=== PATIENT | female | born 1970 | race African-American/Black ===

== ENCOUNTER 2017-05-16 22:22 | Emergency (ER) | payer SELFPAY ==
[2017-05-17 00:46] LABS: #Eosinphils 0.1 thou/uL (0.0-0.7); #Lymphocytes 1.6 thou/uL (1.20-3.40); #Monocytes 0.6 thou/uL (0.11-0.59); #Neutrophils 3.2 thou/uL (1.40-6.50); %Basophils 0.6 % (0.0-1.0); %Lymphocytes 28.7 % (21.0-51.0); %Monocytes 10.9 % (0.0-10.0); Hematocrit 46.4 % (36.0-47.0); Mean Platelet Volume 8.2 fL (7.4-10.4); Red Blood Cell (RBC) Count 5.61 mill/uL (4.20-5.40); White Blood Cell (WBC) Count 5.5 thou/uL (4.8-10.8)
[2017-05-17 01:04] LABS: ALT (SGPT) 179 U/L (8-55); AST (SGOT) 67 U/L (5-34); Alkaline Phosphatase 201 U/L (40-150); Anion Gap 17 mmol/L (10-20); BUN (Urea Nitrogen) 20 mg/dL (7.0-18.7); Bilirubin, Total 0.8 mg/dL (0.2-1.2); CK (CPK) 19 U/L (29-168); Calc. Creatinine Clearance 0 mL/min (70-130); Calcium 10.7 mg/dL (7.8-10.44); Carbon Dioxide 27 mmol/L (22-29); Chloride 102 mmol/L (98-107); Estimated GFR-MDRD 79; Globulin 4.4 g/dL (2.4-3.5); Lipase 13 U/L (8-78)
== END 2017-05-17 03:11 | disposition left against medical advice (07) ==
LOC: ERS 22:22
DX: Z53.21 Procedure and treatment not carried out due to patient leaving prior to being seen by health care provider (principal)
CPT/HCPCS: 36415; 80053; 82550; 83690; 85025

== ENCOUNTER 2017-06-29 09:22 | Day surgery (SDC) | payer OTHER ==
[2017-06-29] MEDS ORDERED: ADMIXTURE FEE IVPB SCH ×9 (10:15→10:30)
[2017-06-29] MEDS ORDERED: LEUCOVORIN CALCIUM IVPB SCH ×6 (10:15→10:30)
[2017-06-29] MEDS ORDERED: DEXTROSE IVPB SCH ×9 (10:15→10:30)
[2017-06-29] MEDS ORDERED: Leucovorin Calcium 50 MG, Admixture Fee 1 EACH in Dextrose 5% in Water 50 ML IVPB SCH ×3 (10:15)
[2017-06-29] MEDS ORDERED: FLUOROURACIL IVPB SCH ×3 (10:15)
[2017-06-29] MEDS ORDERED: WATER IVPB SCH ×9 (10:15→10:30)
[2017-06-29 11:55] VITALS: BP 157/85; TEMP 98.5
[2017-06-29] MEDS ORDERED: Ondansetron HCl/PF 4 MG/2 ML Vial SLOW IVP SCH (13:00)
[2017-07-02] MEDS ORDERED: Ondansetron HCl/PF 4 MG/2 ML Vial IVP SCH (09:45)
== END 2017-06-29 12:38 | disposition home or self-care (01) ==
LOC: ONC/OP 09:22
PROVIDERS: ATTEND Internal Medicine Medical Oncology
DX: Z51.11 Encounter for antineoplastic chemotherapy (principal); C18.5 Malignant neoplasm of splenic flexure; Z90.49 Acquired absence of other specified parts of digestive tract; Z90.710 Acquired absence of both cervix and uterus
CPT/HCPCS: 96367; 96375; 96413; J0640; J2405; J7070; J9190

== ENCOUNTER 2017-06-30 08:53 | Day surgery (SDC) | payer OTHER, SELFPAY ==
[2017-06-30] MEDS ORDERED: DEXTROSE IVPB SCH ×6 (09:15)
[2017-06-30] MEDS ORDERED: ADMIXTURE FEE IVPB SCH ×6 (09:15)
[2017-06-30] MEDS ORDERED: FLUOROURACIL IVPB SCH ×3 (09:15)
[2017-06-30] MEDS ORDERED: WATER IVPB SCH ×6 (09:15)
[2017-06-30] MEDS ORDERED: LEUCOVORIN CALCIUM IVPB SCH ×3 (09:15)
[2017-06-30] MEDS ORDERED: Sodium Chloride 0.9% 20 ML ONE (09:32)
[2017-06-30 10:05] VITALS: BP 172/82; TEMP 97.4
[2017-06-30] MEDS ORDERED: Ondansetron HCl/PF 4 MG/2 ML Vial IVP SCH (13:30)
[2017-07-01] MEDS ORDERED: Ondansetron HCl/PF 4 MG/2 ML Vial IVP SCH (09:00)
== END 2017-06-30 13:59 | disposition home or self-care (01) ==
LOC: ONC/OP 08:53
PROVIDERS: ATTEND Internal Medicine Medical Oncology
DX: Z51.11 Encounter for antineoplastic chemotherapy (principal); C18.5 Malignant neoplasm of splenic flexure; Z90.710 Acquired absence of both cervix and uterus; Z90.49 Acquired absence of other specified parts of digestive tract
CPT/HCPCS: 96367; 96375; 96413; A4216; J0640; J1642; J2405; J7070; J9190

== ENCOUNTER 2017-07-01 08:48 | Day surgery (SDC) | payer SELFPAY ==
[2017-07-01] MEDS ORDERED: WATER IVPB SCH ×6 (09:00)
[2017-07-01] MEDS ORDERED: DEXTROSE IVPB SCH ×6 (09:00)
[2017-07-01] MEDS ORDERED: LEUCOVORIN CALCIUM IVPB SCH ×3 (09:00)
[2017-07-01] MEDS ORDERED: FLUOROURACIL IVPB SCH ×3 (09:00)
[2017-07-01] MEDS ORDERED: ADMIXTURE FEE IVPB SCH ×6 (09:00)
[2017-07-01] MEDS ORDERED: Ondansetron HCl/PF 4 MG/2 ML Vial IVP SCH (09:00)
[2017-07-01 09:03] VITALS: BP 174/88; TEMP 99.3
== END 2017-07-01 11:13 | disposition home or self-care (01) ==
LOC: ONC/OP 08:48
PROVIDERS: ATTEND Internal Medicine Medical Oncology
DX: Z51.11 Encounter for antineoplastic chemotherapy (principal); C18.5 Malignant neoplasm of splenic flexure
CPT/HCPCS: 96367; 96413; J0640; J7070; J9190

== ENCOUNTER 2017-07-02 09:07 | Day surgery (SDC) | payer SELFPAY ==
[2017-07-02] MEDS ORDERED: Sodium Chloride 0.9% 20 ML ONE (09:17)
[2017-07-02] MEDS ORDERED: ADMIXTURE FEE IVPB SCH ×6 (09:30)
[2017-07-02] MEDS ORDERED: WATER IVPB SCH ×6 (09:30)
[2017-07-02] MEDS ORDERED: FLUOROURACIL IVPB SCH ×3 (09:30)
[2017-07-02] MEDS ORDERED: DEXTROSE IVPB SCH ×6 (09:30)
[2017-07-02] MEDS ORDERED: LEUCOVORIN CALCIUM IVPB SCH ×3 (09:30)
[2017-07-02 09:47] VITALS: BP 164/92; TEMP 98.5
[2017-07-02] MEDS ORDERED: Ondansetron HCl/PF 4 MG/2 ML Vial IVP PRN (10:40)
== END 2017-07-02 14:55 | disposition home or self-care (01) ==
LOC: ONC/OP 09:07
PROVIDERS: ATTEND Internal Medicine Medical Oncology
DX: Z51.11 Encounter for antineoplastic chemotherapy (principal); C18.5 Malignant neoplasm of splenic flexure; Z90.710 Acquired absence of both cervix and uterus
CPT/HCPCS: 96367; 96413; A4216; J0640; J7070; J9190

== ENCOUNTER 2017-07-03 08:52 | Day surgery (SDC) | payer SELFPAY ==
[2017-07-03] MEDS ORDERED: Sodium Chloride 0.9% 20 ML ONE (09:01)
[2017-07-03] MEDS ORDERED: Ondansetron 2MG/ML MDV 8 MG in Sodium Chloride 0.9% 50 ML IVP PRN (09:42)
[2017-07-03] MEDS ORDERED: WATER IVPB SCH ×6 (09:45→10:00)
[2017-07-03] MEDS ORDERED: FLUOROURACIL IVPB SCH ×2 (09:45)
[2017-07-03] MEDS ORDERED: DEXTROSE 5% IVPB SCH ×6 (09:45→10:00)
[2017-07-03] MEDS ORDERED: LEUCOVORIN CALCIUM IVPB SCH ×4 (09:45→10:00)
[2017-07-03] MEDS ORDERED: Ondansetron HCl/PF 4 MG/2 ML Vial IVP SCH (10:00)
[2017-07-03 10:05] VITALS: BP 152/86; TEMP 98.3
== END 2017-07-03 11:45 | disposition home or self-care (01) ==
LOC: ONC/OP 08:52
PROVIDERS: ATTEND Internal Medicine Medical Oncology
DX: Z51.11 Encounter for antineoplastic chemotherapy (principal); C18.5 Malignant neoplasm of splenic flexure
CPT/HCPCS: 96367; 96375; 96413; A4216; J0640; J2405; J7050; J7070; J9190

== ENCOUNTER 2017-08-03 13:59 | Day surgery (SDC) | payer OTHER, SELFPAY ==
[2017-08-03] MEDS ORDERED: Sodium Chloride 0.9% 20 ML ONE (14:12)
[2017-08-03] MEDS ORDERED: Ondansetron HCl/PF 4 MG/2 ML Vial IVP SCH (15:00)
[2017-08-03] MEDS ORDERED: DEXTROSE 5% IVPB SCH ×2 (15:15→15:30)
[2017-08-03] MEDS ORDERED: WATER IVPB SCH ×2 (15:15→15:30)
[2017-08-03] MEDS ORDERED: FLUOROURACIL IVPB SCH (15:15)
[2017-08-03] MEDS ORDERED: LEUCOVORIN CALCIUM IVPB SCH (15:30)
== END 2017-08-03 16:28 | disposition home or self-care (01) ==
LOC: ONC/OP 13:59
PROVIDERS: ATTEND Internal Medicine Medical Oncology
DX: Z51.11 Encounter for antineoplastic chemotherapy (principal); C18.5 Malignant neoplasm of splenic flexure; R03.0 Elevated blood-pressure reading, without diagnosis of hypertension; Z79.899 Other long term (current) drug therapy; Z90.710 Acquired absence of both cervix and uterus; Z98.890 Other specified postprocedural states
CPT/HCPCS: 96367; 96375; 96413; A4216; J0640; J1642; J2405; J7070; J9190

== ENCOUNTER 2017-08-04 12:53 | Day surgery (SDC) | payer OTHER, SELFPAY ==
[2017-08-04] MEDS ORDERED: WATER IVPB SCH ×4 (13:15)
[2017-08-04] MEDS ORDERED: DEXTROSE 5% IVPB SCH ×4 (13:15)
[2017-08-04] MEDS ORDERED: LEUCOVORIN CALCIUM IVPB SCH ×2 (13:15)
[2017-08-04] MEDS ORDERED: Ondansetron 2MG/ML MDV 8 MG in Sodium Chloride 0.9% 50 ML IVPB SCH (13:15)
[2017-08-04] MEDS ORDERED: FLUOROURACIL IVPB SCH ×2 (13:15)
== END 2017-08-04 14:46 | disposition home or self-care (01) ==
LOC: ONC/OP 12:53
PROVIDERS: ATTEND Internal Medicine Medical Oncology
DX: Z51.11 Encounter for antineoplastic chemotherapy (principal); C18.5 Malignant neoplasm of splenic flexure
CPT/HCPCS: 96367; 96413; J0640; J2405; J7050; J7070; J9190

== ENCOUNTER 2017-08-05 12:59 | Day surgery (SDC) | payer OTHER, SELFPAY ==
[2017-08-05] MEDS ORDERED: Sodium Chloride 0.9% 20 ML ONE (13:02)
[2017-08-05] MEDS ORDERED: WATER IVPB SCH ×4 (13:15→13:30)
[2017-08-05] MEDS ORDERED: LEUCOVORIN CALCIUM IVPB SCH ×2 (13:15)
[2017-08-05] MEDS ORDERED: DEXTROSE 5% IVPB SCH ×4 (13:15→13:30)
[2017-08-05] MEDS ORDERED: Ondansetron HCl/PF 4 MG/2 ML Vial SLOW IVP SCH (13:30)
[2017-08-05] MEDS ORDERED: FLUOROURACIL IVPB SCH ×2 (13:30)
[2017-08-05 13:39] VITALS: BP 148/92; TEMP 98.5
== END 2017-08-05 17:35 | disposition home or self-care (01) ==
LOC: ONC/OP 12:59
PROVIDERS: ATTEND Internal Medicine Medical Oncology
DX: Z51.11 Encounter for antineoplastic chemotherapy (principal); C18.5 Malignant neoplasm of splenic flexure
CPT/HCPCS: 96367; 96375; 96413; A4216; J0640; J2405; J7070; J9190

== ENCOUNTER 2017-08-06 12:53 | Day surgery (SDC) | payer OTHER, SELFPAY ==
[2017-08-06] MEDS ORDERED: DEXTROSE 5% IVPB SCH ×4 (13:00→13:15)
[2017-08-06] MEDS ORDERED: LEUCOVORIN CALCIUM IVPB SCH ×2 (13:00)
[2017-08-06] MEDS ORDERED: WATER IVPB SCH ×4 (13:00→13:15)
[2017-08-06] MEDS ORDERED: Ondansetron 2MG/ML MDV 8 MG in Sodium Chloride 0.9% 50 ML IVPB SCH (13:15)
[2017-08-06] MEDS ORDERED: FLUOROURACIL IVPB SCH ×2 (13:15)
== END 2017-08-06 15:23 | disposition home or self-care (01) ==
LOC: ONC/OP 12:53
PROVIDERS: ATTEND Internal Medicine Medical Oncology
DX: Z51.11 Encounter for antineoplastic chemotherapy (principal); C18.5 Malignant neoplasm of splenic flexure
CPT/HCPCS: 96367; 96413; J0640; J2405; J7050; J7070; J9190

== ENCOUNTER 2017-08-07 12:33 | Day surgery (SDC) | payer OTHER, SELFPAY ==
[2017-08-07] MEDS ORDERED: FLUOROURACIL IVPB SCH ×2 (12:45)
[2017-08-07] MEDS ORDERED: Ondansetron HCl/PF 4 MG/2 ML Vial SLOW IVP SCH (12:45)
[2017-08-07] MEDS ORDERED: LEUCOVORIN CALCIUM IVPB SCH ×2 (12:45)
[2017-08-07] MEDS ORDERED: DEXTROSE 5% IVPB SCH ×4 (12:45)
[2017-08-07] MEDS ORDERED: WATER IVPB SCH ×4 (12:45)
[2017-08-07 13:19] VITALS: BP 155/85; TEMP 98.1
== END 2017-08-07 15:10 | disposition home or self-care (01) ==
LOC: ONC/OP 12:33
PROVIDERS: ATTEND Internal Medicine Medical Oncology
DX: Z51.11 Encounter for antineoplastic chemotherapy (principal); C18.5 Malignant neoplasm of splenic flexure; Z90.710 Acquired absence of both cervix and uterus
CPT/HCPCS: 96367; 96376; 96413; J0640; J2405; J7070; J9190

== ENCOUNTER 2017-08-31 13:19 | Day surgery (SDC) | payer OTHER, SELFPAY ==
[2017-08-31] MEDS ORDERED: Sodium Chloride 0.9% 20 ML ONE (13:57)
[2017-08-31] MEDS ORDERED: ADMIXTURE FEE IVPB SCH ×2 (14:15)
[2017-08-31] MEDS ORDERED: DEXTROSE IVPB SCH (14:15)
[2017-08-31] MEDS ORDERED: SODIUM CHLORIDE IVPB SCH (14:15)
[2017-08-31] MEDS ORDERED: ADMIXTURE FEE IVP SCH (14:15)
[2017-08-31] MEDS ORDERED: ONDANSETRON IVP SCH (14:15)
[2017-08-31] MEDS ORDERED: WATER IVPB SCH (14:15)
[2017-08-31] MEDS ORDERED: FLUOROURACIL IVPB SCH (14:15)
[2017-08-31] MEDS ORDERED: SODIUM CHLORIDE IVP SCH (14:15)
[2017-08-31] MEDS ORDERED: LEUCOVORIN CALCIUM IVPB SCH (14:15)
== END 2017-08-31 16:20 | disposition home or self-care (01) ==
LOC: ONC/OP 13:19
PROVIDERS: ATTEND Internal Medicine Medical Oncology
DX: Z51.11 Encounter for antineoplastic chemotherapy (principal); C18.5 Malignant neoplasm of splenic flexure; D50.9 Iron deficiency anemia, unspecified; R03.0 Elevated blood-pressure reading, without diagnosis of hypertension; Z79.899 Other long term (current) drug therapy; Z90.49 Acquired absence of other specified parts of digestive tract; Z90.710 Acquired absence of both cervix and uterus
CPT/HCPCS: 96367; 96413; A4216; J0640; J2405; J7050; J7070; J9190

== ENCOUNTER 2017-09-01 11:11 | Day surgery (SDC) | payer OTHER, SELFPAY ==
[2017-09-01] MEDS ORDERED: ADMIXTURE FEE IVPB SCH ×2 (11:30)
[2017-09-01] MEDS ORDERED: FLUOROURACIL IVPB SCH (11:30)
[2017-09-01] MEDS ORDERED: Ondansetron HCl/PF 4 MG/2 ML Vial IVP SCH (11:30)
[2017-09-01] MEDS ORDERED: LEUCOVORIN CALCIUM IVPB SCH (11:30)
[2017-09-01] MEDS ORDERED: SODIUM CHLORIDE IVPB SCH ×2 (11:30)
[2017-09-01] MEDS ORDERED: Sodium Chloride 0.9% 20 ML ONE (11:45)
== END 2017-09-01 15:36 | disposition home or self-care (01) ==
LOC: ONC/OP 11:11
PROVIDERS: ATTEND Internal Medicine Medical Oncology
DX: Z51.11 Encounter for antineoplastic chemotherapy (principal); C18.5 Malignant neoplasm of splenic flexure; Z90.710 Acquired absence of both cervix and uterus
CPT/HCPCS: 96367; 96413; A4216; J0640; J7050; J9190

== ENCOUNTER 2017-09-02 11:23 | Day surgery (SDC) | payer OTHER, SELFPAY ==
[2017-09-02] MEDS ORDERED: Sodium Chloride 0.9% 30 ML ONE (11:29)
[2017-09-02] MEDS ORDERED: Ondansetron HCl/PF 4 MG/2 ML Vial IVP SCH (14:15)
[2017-09-02] MEDS ORDERED: SODIUM CHLORIDE IVPB SCH ×2 (14:30)
[2017-09-02] MEDS ORDERED: ADMIXTURE FEE IVPB SCH ×2 (14:30)
[2017-09-02] MEDS ORDERED: LEUCOVORIN CALCIUM IVPB SCH (14:30)
[2017-09-02] MEDS ORDERED: FLUOROURACIL IVPB SCH (14:30)
[2017-09-02 15:21] VITALS: BP 93/77; TEMP 98
== END 2017-09-02 15:26 | disposition home or self-care (01) ==
LOC: ONC/OP 11:23
PROVIDERS: ATTEND Internal Medicine Medical Oncology
DX: Z51.11 Encounter for antineoplastic chemotherapy (principal); C18.5 Malignant neoplasm of splenic flexure
CPT/HCPCS: 96367; 96375; 96413; A4216; J0640; J7050; J9190

== ENCOUNTER 2017-09-03 11:46 | Day surgery (SDC) | payer OTHER, SELFPAY ==
[~2017-09-03 11:46] MED LIST: ADMIXTURE FEE IVPB SCH; FLUOROURACIL IVPB SCH; LEUCOVORIN CALCIUM IVPB SCH; Ondansetron HCl/PF 4 MG/2 ML Vial IVP SCH; SODIUM CHLORIDE IVPB SCH
[2017-09-03] MEDS ORDERED: ADMIXTURE FEE IVPB SCH ×2 (12:15→12:30)
[2017-09-03] MEDS ORDERED: Ondansetron HCl/PF 4 MG/2 ML Vial IVP SCH (12:15)
[2017-09-03] MEDS ORDERED: LEUCOVORIN CALCIUM IVPB SCH (12:15)
[2017-09-03] MEDS ORDERED: SODIUM CHLORIDE IVPB SCH ×2 (12:15→12:30)
[2017-09-03] MEDS ORDERED: FLUOROURACIL IVPB SCH (12:30)
[2017-09-03] MEDS ORDERED: Sodium Chloride 0.9% 20 ML ONE (13:15)
== END 2017-09-03 14:13 | disposition home or self-care (01) ==
LOC: ONC/OP 11:46
PROVIDERS: ATTEND Internal Medicine Medical Oncology
DX: Z51.11 Encounter for antineoplastic chemotherapy (principal); C18.9 Malignant neoplasm of colon, unspecified
CPT/HCPCS: 96367; 96375; 96413; A4216; J0640; J2405; J7050; J9190

== ENCOUNTER 2017-09-04 11:09 | Day surgery (SDC) | payer SELFPAY ==
[2017-09-04 11:26] VITALS: BP 128/85; TEMP 97.8
[2017-09-04] MEDS ORDERED: Ondansetron HCl/PF 4 MG/2 ML Vial IVP SCH (11:30)
[2017-09-04] MEDS ORDERED: FLUOROURACIL IVPB SCH (11:30)
[2017-09-04] MEDS ORDERED: ADMIXTURE FEE IVPB SCH ×2 (11:30)
[2017-09-04] MEDS ORDERED: LEUCOVORIN CALCIUM IVPB SCH (11:30)
[2017-09-04] MEDS ORDERED: SODIUM CHLORIDE IVPB SCH ×2 (11:30)
[2017-09-04] MEDS ORDERED: Sodium Chloride 0.9% 30 ML ONE (12:45)
== END 2017-09-04 13:24 | disposition home or self-care (01) ==
LOC: ONC/OP 11:09
PROVIDERS: ATTEND Internal Medicine Medical Oncology
DX: Z51.11 Encounter for antineoplastic chemotherapy (principal); C18.5 Malignant neoplasm of splenic flexure; Z90.710 Acquired absence of both cervix and uterus
CPT/HCPCS: 96367; 96375; 96413; A4216; J0640; J2405; J7050; J9190

== ENCOUNTER 2017-09-28 13:45 | Day surgery (SDC) | payer OTHER, SELFPAY ==
[2017-09-28] MEDS ORDERED: Sodium Chloride 0.9% 20 ML ONE (13:59)
[2017-09-28] MEDS ORDERED: LEUCOVORIN CALCIUM IVPB SCH (14:00)
[2017-09-28] MEDS ORDERED: SODIUM CHLORIDE 0.9% IVPB SCH ×2 (14:00)
[2017-09-28] MEDS ORDERED: Ondansetron HCl/PF 4 MG/2 ML Vial SLOW IVP SCH (14:00)
[2017-09-28] MEDS ORDERED: FLUOROURACIL IVPB SCH (14:00)
[2017-09-28 14:43] VITALS: BP 128/72
== END 2017-09-28 16:18 | disposition home or self-care (01) ==
LOC: ONC/OP 13:45
PROVIDERS: ATTEND Internal Medicine Medical Oncology
DX: Z51.11 Encounter for antineoplastic chemotherapy (principal); C18.5 Malignant neoplasm of splenic flexure; R03.0 Elevated blood-pressure reading, without diagnosis of hypertension; Z79.899 Other long term (current) drug therapy; Z90.710 Acquired absence of both cervix and uterus; Z98.890 Other specified postprocedural states
CPT/HCPCS: 96367; 96375; 96413; A4216; J0640; J2405; J7050; J9190

== ENCOUNTER 2017-09-29 13:13 | Day surgery (SDC) | payer OTHER, SELFPAY ==
[2017-09-29] MEDS ORDERED: Sodium Chloride 0.9% 30 ML ONE (13:20)
[2017-09-29 13:30] VITALS: BP 155/84
[2017-09-29] MEDS ORDERED: SODIUM CHLORIDE 0.9% IVPB SCH ×2 (13:30)
[2017-09-29] MEDS ORDERED: LEUCOVORIN CALCIUM IVPB SCH (13:30)
[2017-09-29] MEDS ORDERED: FLUOROURACIL IVPB SCH (13:30)
[2017-09-29] MEDS ORDERED: Ondansetron HCl/PF 4 MG/2 ML Vial SLOW IVP SCH (13:30)
== END 2017-09-29 17:07 | disposition home or self-care (01) ==
LOC: ONC/OP 13:13
PROVIDERS: ATTEND Internal Medicine Medical Oncology
DX: Z51.11 Encounter for antineoplastic chemotherapy (principal); C18.5 Malignant neoplasm of splenic flexure
CPT/HCPCS: 96367; 96375; 96413; A4216; J0640; J2405; J7050; J9190

== ENCOUNTER 2017-09-30 13:03 | Day surgery (SDC) | payer OTHER, SELFPAY ==
[2017-09-30] MEDS ORDERED: FLUOROURACIL IVPB SCH (13:15)
[2017-09-30] MEDS ORDERED: ADMIXTURE FEE IVPB SCH ×3 (13:15→13:30)
[2017-09-30] MEDS ORDERED: Ondansetron HCl/PF 4 MG/2 ML Vial IVP SCH (13:15)
[2017-09-30] MEDS ORDERED: LEUCOVORIN CALCIUM IVPB SCH ×2 (13:15→13:30)
[2017-09-30] MEDS ORDERED: SODIUM CHLORIDE IVPB SCH ×3 (13:15→13:30)
[2017-09-30 13:16] VITALS: BP 141/79; TEMP 97.7
[2017-09-30] MEDS ORDERED: Sodium Chloride 0.9% 20 ML ONE (13:41)
== END 2017-09-30 15:53 | disposition home or self-care (01) ==
LOC: ONC/OP 13:03
PROVIDERS: ATTEND Internal Medicine Medical Oncology
DX: Z51.11 Encounter for antineoplastic chemotherapy (principal); C18.5 Malignant neoplasm of splenic flexure
CPT/HCPCS: 96367; 96375; 96413; A4216; J0640; J2405; J7050; J9190

== ENCOUNTER 2017-10-01 12:42 | Day surgery (SDC) | payer OTHER, SELFPAY ==
[2017-10-01] MEDS ORDERED: FLUOROURACIL IVPB SCH ×4 (13:00)
[2017-10-01] MEDS ORDERED: SODIUM CHLORIDE 0.9% IVPB SCH ×5 (13:00)
[2017-10-01] MEDS ORDERED: Ondansetron HCl/PF 4 MG/2 ML Vial SLOW IVP SCH (13:00)
[2017-10-01] MEDS ORDERED: LEUCOVORIN CALCIUM IVPB SCH (13:00)
[2017-10-01 13:20] VITALS: BP 134/76; TEMP 98.3
== END 2017-10-01 16:51 | disposition home or self-care (01) ==
LOC: ONC/OP 12:42
PROVIDERS: ATTEND Internal Medicine Medical Oncology
DX: Z51.11 Encounter for antineoplastic chemotherapy (principal); C18.5 Malignant neoplasm of splenic flexure
CPT/HCPCS: 96367; 96375; 96413; J0640; J2405; J7050; J9190

== ENCOUNTER 2017-10-02 12:59 | Day surgery (SDC) | payer OTHER, SELFPAY ==
[2017-10-02] MEDS ORDERED: Sodium Chloride 0.9% 30 ML ONE (13:05)
[2017-10-02] MEDS ORDERED: FLUOROURACIL IVPB SCH (13:15)
[2017-10-02] MEDS ORDERED: SODIUM CHLORIDE 0.9% IVPB SCH ×2 (13:15)
[2017-10-02] MEDS ORDERED: LEUCOVORIN CALCIUM IVPB SCH (13:15)
[2017-10-02] MEDS ORDERED: Ondansetron HCl/PF 4 MG/2 ML Vial SLOW IVP SCH (13:30)
[2017-10-02 13:55] VITALS: BP 108/69; TEMP 98.5
== END 2017-10-02 14:30 | disposition home or self-care (01) ==
LOC: ONC/OP 12:59
PROVIDERS: ATTEND Internal Medicine Medical Oncology
DX: Z51.11 Encounter for antineoplastic chemotherapy (principal); C18.5 Malignant neoplasm of splenic flexure
CPT/HCPCS: 96367; 96376; 96413; A4216; J0640; J2405; J7050; J9190

== ENCOUNTER 2017-10-26 13:50 | Day surgery (SDC) | payer SELFPAY ==
[2017-10-26] MEDS ORDERED: Ondansetron HCl/PF 4 MG/2 ML Vial IVP SCH (14:30)
[2017-10-26] MEDS ORDERED: LEUCOVORIN CALCIUM IVPB SCH (14:45)
[2017-10-26] MEDS ORDERED: FLUOROURACIL IVPB SCH ×3 (14:45)
[2017-10-26] MEDS ORDERED: SODIUM CHLORIDE IVPB SCH ×4 (14:45)
[2017-10-26] MEDS ORDERED: ADMIXTURE FEE IVPB SCH ×4 (14:45)
[2017-10-26] MEDS ORDERED: Ondansetron 2MG/ML MDV 8 MG in Sodium Chloride 0.9% 50 ML IVP SCH (14:45)
== END 2017-10-26 16:33 | disposition home or self-care (01) ==
LOC: ONC/OP 13:50
PROVIDERS: ATTEND Internal Medicine Medical Oncology
DX: Z51.11 Encounter for antineoplastic chemotherapy (principal); C18.5 Malignant neoplasm of splenic flexure; D50.9 Iron deficiency anemia, unspecified; R03.0 Elevated blood-pressure reading, without diagnosis of hypertension; Z90.49 Acquired absence of other specified parts of digestive tract
CPT/HCPCS: 96367; 96413; J0640; J2405; J7050; J9190

== ENCOUNTER 2017-10-27 13:41 | Day surgery (SDC) | payer OTHER, SELFPAY ==
[2017-10-27] MEDS ORDERED: Ondansetron ODT 8 MG TAB PO SCH (14:00)
[2017-10-27 14:16] VITALS: BP 135/77
[2017-10-27] MEDS ORDERED: SODIUM CHLORIDE IVPB SCH ×2 (14:30)
[2017-10-27] MEDS ORDERED: LEUCOVORIN CALCIUM IVPB SCH (14:30)
[2017-10-27] MEDS ORDERED: ADMIXTURE FEE IVPB SCH ×2 (14:30)
[2017-10-27] MEDS ORDERED: FLUOROURACIL IVPB SCH (14:30)
== END 2017-10-27 14:47 | disposition home or self-care (01) ==
LOC: ONC/OP 13:41
PROVIDERS: ATTEND Internal Medicine Medical Oncology
DX: Z51.11 Encounter for antineoplastic chemotherapy (principal); C18.5 Malignant neoplasm of splenic flexure
CPT/HCPCS: 96367; 96413; J0640; J7050; J9190

== ENCOUNTER 2017-10-28 13:57 | Day surgery (SDC) | payer OTHER, SELFPAY ==
[2017-10-28] MEDS ORDERED: SODIUM CHLORIDE IVPB SCH ×2 (14:15)
[2017-10-28] MEDS ORDERED: FLUOROURACIL IVPB SCH (14:15)
[2017-10-28] MEDS ORDERED: Ondansetron ODT 8 MG TAB PO SCH (14:15)
[2017-10-28] MEDS ORDERED: ADMIXTURE FEE IVPB SCH ×2 (14:15)
[2017-10-28] MEDS ORDERED: LEUCOVORIN CALCIUM IVPB SCH (14:15)
[2017-10-28 14:19] VITALS: BP 149/85
== END 2017-10-28 15:29 | disposition home or self-care (01) ==
LOC: ONC/OP 13:57
PROVIDERS: ATTEND Internal Medicine Medical Oncology
DX: Z51.11 Encounter for antineoplastic chemotherapy (principal); C18.5 Malignant neoplasm of splenic flexure
CPT/HCPCS: 96367; 96413; J0640; J7050; J9190

== ENCOUNTER 2017-10-29 13:38 | Day surgery (SDC) | payer OTHER, SELFPAY ==
[2017-10-29] MEDS ORDERED: ADMIXTURE FEE IVPB SCH ×2 (14:15)
[2017-10-29] MEDS ORDERED: Ondansetron ODT 8 MG TAB PO SCH (14:15)
[2017-10-29] MEDS ORDERED: FLUOROURACIL IVPB SCH (14:15)
[2017-10-29] MEDS ORDERED: SODIUM CHLORIDE IVPB SCH ×2 (14:15)
[2017-10-29] MEDS ORDERED: LEUCOVORIN CALCIUM IVPB SCH (14:15)
== END 2017-10-29 16:18 | disposition home or self-care (01) ==
LOC: ONC/OP 13:38
PROVIDERS: ATTEND Internal Medicine Medical Oncology
DX: Z51.11 Encounter for antineoplastic chemotherapy (principal); C18.5 Malignant neoplasm of splenic flexure
CPT/HCPCS: 96367; 96413; J0640; J7050; J9190

== ENCOUNTER 2017-10-30 13:29 | Day surgery (SDC) | payer SELFPAY ==
[2017-10-30] MEDS ORDERED: LEUCOVORIN CALCIUM IVPB SCH (13:45)
[2017-10-30] MEDS ORDERED: SODIUM CHLORIDE 0.9% IVPB SCH ×3 (13:45→14:15)
[2017-10-30] MEDS ORDERED: FLUOROURACIL IVPB SCH ×2 (14:00→14:15)
[2017-10-30] MEDS ORDERED: Ondansetron ODT 8 MG TAB PO SCH (14:00)
[2017-10-30] MEDS ORDERED: Sodium Chloride 0.9% 20 ML ONE (14:07)
== END 2017-10-30 16:00 | disposition home or self-care (01) ==
LOC: ONC/OP 13:29
PROVIDERS: ATTEND Internal Medicine Medical Oncology
DX: Z51.11 Encounter for antineoplastic chemotherapy (principal); C18.5 Malignant neoplasm of splenic flexure
CPT/HCPCS: 96367; 96413; A4216; J0640; J7050; J9190

== ENCOUNTER 2017-11-23 13:52 | Day surgery (SDC) | payer OTHER, SELFPAY ==
[2017-11-23] MEDS ORDERED: Sodium Chloride 0.9% 30 ML ONE (14:15)
[2017-11-23] MEDS ORDERED: LEUCOVORIN CALCIUM IVPB SCH (14:15)
[2017-11-23] MEDS ORDERED: WATER IVPB SCH (14:15)
[2017-11-23] MEDS ORDERED: DEXTROSE 5% IVPB SCH (14:15)
[2017-11-23] MEDS ORDERED: Ondansetron HCl/PF 8 MG in Sodium Chloride 0.9% 50 ML IVPB SCH (14:30)
[2017-11-23] MEDS ORDERED: FLUOROURACIL IVPB SCH (14:30)
[2017-11-23] MEDS ORDERED: SODIUM CHLORIDE 0.9% IVPB SCH (14:30)
== END 2017-11-23 19:18 | disposition home or self-care (01) ==
LOC: ONC/OP 13:52
PROVIDERS: ATTEND Internal Medicine Medical Oncology
DX: Z51.11 Encounter for antineoplastic chemotherapy (principal); C18.5 Malignant neoplasm of splenic flexure
CPT/HCPCS: 96367; 96413; A4216; J0640; J2405; J7050; J7070; J9190

== ENCOUNTER 2017-11-24 13:37 | Day surgery (SDC) | payer OTHER, SELFPAY ==
[2017-11-24] MEDS ORDERED: FLUOROURACIL IVPB SCH (14:00)
[2017-11-24] MEDS ORDERED: LEUCOVORIN CALCIUM IVPB SCH (14:00)
[2017-11-24] MEDS ORDERED: SODIUM CHLORIDE 0.9% IVPB SCH (14:00)
[2017-11-24] MEDS ORDERED: Ondansetron ODT 8 MG TAB PO SCH (14:00)
[2017-11-24] MEDS ORDERED: DEXTROSE 5% IVPB SCH (14:00)
[2017-11-24] MEDS ORDERED: WATER IVPB SCH (14:00)
[2017-11-24] MEDS ORDERED: Ondansetron HCl/PF 8 MG in Sodium Chloride 0.9% 50 ML IVPB SCH (14:00)
[2017-11-24] MEDS ORDERED: Sodium Chloride 0.9% 20 ML ONE (14:01)
== END 2017-11-24 15:28 | disposition home or self-care (01) ==
LOC: ONC/OP 13:37
PROVIDERS: ATTEND Internal Medicine Medical Oncology
DX: Z51.11 Encounter for antineoplastic chemotherapy (principal); C18.5 Malignant neoplasm of splenic flexure
CPT/HCPCS: 96367; 96413; J0640; J2405; J7050; J7070; J9190

== ENCOUNTER 2017-11-25 13:18 | Day surgery (SDC) | payer OTHER, SELFPAY ==
[2017-11-25 13:26] VITALS: BP 141/91; TEMP 98.8
[2017-11-25] MEDS ORDERED: SODIUM CHLORIDE IVPB SCH ×2 (13:30)
[2017-11-25] MEDS ORDERED: ADMIXTURE FEE IVPB SCH ×2 (13:30)
[2017-11-25] MEDS ORDERED: FLUOROURACIL IVPB SCH (13:30)
[2017-11-25] MEDS ORDERED: Ondansetron ODT 8 MG TAB PO SCH (13:30)
[2017-11-25] MEDS ORDERED: LEUCOVORIN CALCIUM IVPB SCH (13:30)
== END 2017-11-25 15:08 | disposition home or self-care (01) ==
LOC: ONC/OP 13:18
PROVIDERS: ATTEND Internal Medicine Medical Oncology
DX: Z51.11 Encounter for antineoplastic chemotherapy (principal); C18.5 Malignant neoplasm of splenic flexure
CPT/HCPCS: 96367; 96413; J0640; J7050; J9190

== ENCOUNTER 2017-11-26 13:18 | Day surgery (SDC) | payer OTHER, SELFPAY ==
[2017-11-26] MEDS ORDERED: Ondansetron ODT 8 MG TAB PO SCH (14:00)
[2017-11-26] MEDS ORDERED: FLUOROURACIL IVPB SCH (14:30)
[2017-11-26] MEDS ORDERED: LEUCOVORIN CALCIUM IVPB SCH (14:30)
[2017-11-26] MEDS ORDERED: ADMIXTURE FEE IVPB SCH ×2 (14:30)
[2017-11-26] MEDS ORDERED: SODIUM CHLORIDE IVPB SCH ×2 (14:30)
[2017-11-26] MEDS ORDERED: Sodium Chloride 0.9% 20 ML ONE (14:32)
== END 2017-11-26 15:58 | disposition home or self-care (01) ==
LOC: ONC/OP 13:18
PROVIDERS: ATTEND Internal Medicine Medical Oncology
DX: Z51.11 Encounter for antineoplastic chemotherapy (principal); C18.5 Malignant neoplasm of splenic flexure
CPT/HCPCS: 96367; 96413; A4216; J0640; J7050; J9190

== ENCOUNTER → 2017-11-27 | Day surgery (SDC) | payer OTHER, SELFPAY ==
[~2017-11-27] MED LIST changes: -ADMIXTURE FEE IVPB SCH; -LEUCOVORIN CALCIUM IVPB SCH; -Ondansetron HCl/PF 4 MG/2 ML Vial IVP SCH; +Ondansetron ODT 8 MG TAB PO SCH; +SODIUM CHLORIDE 0.9% IVPB SCH; -SODIUM CHLORIDE IVPB SCH; +Sodium Chloride 0.9% 20 ML ONE
[2017-11-27 14:00] VITALS: BP 138/85; TEMP 99
== END ==
LOC: ONC/OP 13:21
PROVIDERS: ATTEND Internal Medicine Medical Oncology
DX: Z51.11 Encounter for antineoplastic chemotherapy (principal); C18.5 Malignant neoplasm of splenic flexure; D50.9 Iron deficiency anemia, unspecified; I10 Essential (primary) hypertension; Z98.890 Other specified postprocedural states; Z85.038 Personal history of other malignant neoplasm of large intestine
CPT/HCPCS: 96367; 96413; A4216; J0640; J7050; J9190

== ENCOUNTER 2018-08-19 14:18 | Outpatient (CLI) | payer MEDICARE | END 2018-08-19 14:19 | disposition home or self-care (01) | LOC: BICMAMMO 14:18 | PROVIDERS: ATTEND Internal Medicine Medical Oncology | DX: Z12.31 Encounter for screening mammogram for malignant neoplasm of breast (principal); Z85.038 Personal history of other malignant neoplasm of large intestine; Z80.3 Family history of malignant neoplasm of breast | CPT/HCPCS: 77063; 77067 ==

== ENCOUNTER 2018-12-09 07:16 | Outpatient (CLI) | payer MEDICARE ==
--- NOTE | 2018-12-09 08:34 | CT ---
EXAM: Abdomen and pelvic CT scan with contrast: HISTORY: Ascending colon cancer with anastomotic recurrence COMPARISON: 08/03/2007 11/09/2016 from the med FINDINGS: The visualized lung bases are clear. Liver: Multiple circumscribed low-attenuation foci within the liver. Some of these are stable and shannon e have minimally increased in size from prior study, in the right lobe adjacent to the gallbladder a mass now measures 1.3 cm in size where it previously measured 0.7 cm in 2017. Gallbladder:Unremarkable. Pancreas:Unremarkable Spleen:Unremarkable. Adrenal glands:Unremarkable. Kidneys:Nonobstructing left renal calculus.Several small left upper pole renal cysts. No overt bowel obstruction. Status post right hemicolectomy. No CT evidence for acute appendicitis. The urinary bladder is unremarkable. No abscess, adenopathy, or abnormal fluid collection within the abdomen or pelvis. IMPRESSION: Multiple circumscribed low-attenuation foci within the liver. Some of these are stable from prior julio cesar dy. Some of these have minimally increased in size including 1 in the right lobe is increased in size from 0.7 cm to 1.3 cm in its 2017. Nonobstructing left renal calculus. Several small left upper pole renal cysts. No overt adenopathy.
== END 2018-12-09 07:17 | disposition home or self-care (01) ==
LOC: BICCT 07:16
PROVIDERS: ATTEND Internal Medicine Gastroenterology
DX: C18.2 Malignant neoplasm of ascending colon (principal); R93.2 Abnormal findings on diagnostic imaging of liver and biliary tract; N20.0 Calculus of kidney; N28.1 Cyst of kidney, acquired
CPT/HCPCS: 74177

== ENCOUNTER 2018-12-16 07:57 | Outpatient (CLI) | payer MEDICARE ==
--- NOTE | 2018-12-16 11:26 | PET ---
PET CT: HISTORY: A 48-year-old female with colon cancer at the anastomatic site. Exam is requested for staging. TECHNIQUE: PET scanning with CT attenuation correction was performed from the base of the brain through the prox imal thighs following the intravenous administration of 11.2 mCi [id number] in the right hand. COMPARISON: None. CORRELATION: CT abdomen and pelvis of 12/09/2018. FINDINGS: There is increased uptake in the brown fat of the neck, upper chest, and axilla. There is physiologi c activity in the heart, GI and tracts, and the visualized portions of the brain. No bob hypermetabolism is seen in the neck, chest, abdomen, or pelvis. No hypermetabolic pulmonary nodules, liver, adrenal, or skeletal lesions are seen. There is focally intense uptake in the region of the splenic flexure (SUV: 10.8). The CT scan used for attenuation correction demonstrates no evidence of pleural effusions or ascites. Nonobstructing left renal calculus is again seen. IMPRESSION: 1. No evidence of metastatic disease. 2. Focally intense uptake in the region of the splenic flexure is a suspicious finding. POS: CARLITA
== END 2018-12-16 07:58 | disposition home or self-care (01) ==
LOC: PET 07:57
PROVIDERS: ATTEND Internal Medicine Medical Oncology
DX: C18.9 Malignant neoplasm of colon, unspecified (principal)
CPT/HCPCS: 78815; A9552

== ENCOUNTER 2020-05-03 09:41 | Outpatient (CLI) | payer MEDICARE ==
--- NOTE | 2020-05-03 10:43 | MMO ---
Bilateral MAMMO Bilat Screen [facility]. CLINICAL HISTORY: Patient is 49 years old and is seen for screening. The patient has no family history of breast cancer. The patient has a history of colon cancer 2019. VIEWS: The views performed were: bilateral craniocaudal with tomosynthesis and bilateral mediolateral oblique with tomosynthesis. FILMS COMPARED: The present examination has been compared to a prior imaging study performed at [facility] on 08/19/2018. This study has been interpreted with the assistance of computer-aided detection. MAMMOGRAM FINDINGS: There are scattered fibroglandular densities. Finding 1: There are stable benign appearing calcifications seen in both breasts. Finding 2: There are multiple benign appearing densities of varying size with circumscribed margins seen in both breasts. There are no suspicious masses, suspicious calcifications, or new areas of architectural distortion. IMPRESSION: THERE IS NO MAMMOGRAPHIC EVIDENCE OF MALIGNANCY. A ROUTINE FOLLOW-UP MAMMOGRAM IN 1 YEAR IS RECOMMENDED. THE RESULTS OF THIS EXAM WERE SENT TO THE PATIENT. ACR BI-RADS Category 2 - Benign finding MAMMOGRAPHY NOTE: 1. A negative mammogram report should not delay a biopsy if a dominant of clinically suspicious mass is present. 2. Approximately 10% to 15% of breast cancers are not detected by mammography. 3. Adenosis and dense breasts may obscure an underlying neoplasm. Reported by: DANYA FOWLER MD Electonically Signed: [id number]
== END 2020-05-03 09:42 | disposition home or self-care (01) ==
LOC: BICMAMMO 09:41
PROVIDERS: ATTEND Internal Medicine Medical Oncology
DX: Z12.31 Encounter for screening mammogram for malignant neoplasm of breast (principal); Z85.038 Personal history of other malignant neoplasm of large intestine
CPT/HCPCS: 77063; 77067

== ENCOUNTER 2023-08-25 10:26 | Outpatient (CLI) | payer MEDICARE, MEDICAID | END 2023-08-25 10:27 | disposition home or self-care (01) | LOC: BICMAMMO 10:26 | PROVIDERS: ATTEND Internal Medicine Hematology & Oncology | DX: Z12.31 Encounter for screening mammogram for malignant neoplasm of breast (principal); Z80.3 Family history of malignant neoplasm of breast; Z85.038 Personal history of other malignant neoplasm of large intestine | CPT/HCPCS: 77063; 77067 ==